=== PATIENT | male | born 1975 | race African-American/Black ===

== ENCOUNTER 2018-08-31 08:52 | Inpatient (IN) | payer BC ==
[2018-08-31 09:32] VITALS: BMI 25.5
[2018-08-31] MEDS ORDERED: MAGNESIUM HYDROX 2400MG/30ML ORAL SUSPENSION 30 ML CUP PO PRN (11:04)
[2018-08-31] MEDS ORDERED: P-EPHED 60MG/TRIPROLIDI 2.5MG TABLET PO PRN (11:04)
[2018-08-31] MEDS ORDERED: LOPERAMIDE HCL 2 MG CAPSULE PO PRN (11:04)
[2018-08-31] MEDS ORDERED: MENTHOL/PHENOL 1 EACH UD MM PRN (11:04)
[2018-08-31] MEDS ORDERED: guaiFENesin/D-METHORPHAN HB 10 ML UNIT-DOSE CUPS PO PRN (11:04)
[2018-08-31] MEDS ORDERED: MAGNESIUM CITRATE 300 ML BOTTLE PO PRN (11:04)
[2018-08-31] MEDS ORDERED: hydrOXYzine PAMOATE 50 MG CAPSULE (FP) PO PRN (11:04)
[2018-08-31] MEDS ORDERED: NICOTINE POLACRILEX 2 MG GUM BUC PRN (11:04)
[2018-08-31] MEDS ORDERED: chlordiazePOXIDE HCL 25 MG CAPSULE PO PRN (11:10)
--- NOTE | 2018-08-31 11:16 | HP ---
CIWA Score Nausea/Vomitin-No Nausea/No Vomiting Muscle Tremors: 1-None Visible, but [place] Anxiety: 4-Mod. Anxious/Guarded Agitation: 4-Moderately Restless Paroxysmal Sweats: No Perspiration Orientation: 0-Oriented Tacttile Disturbances: 2-Mild Itch/Numbness/Burn Auditory Disturbances: 2-Mild Harshness/Frighten Visual Disturbances: 2-Mild Sensitivity Headache: 1-Very Mild CIWA-Ar Total Score: 16 - Admission Criteria [facility]ASAS Guidelines: Admission for Medically Managed Detox: Requires at least one of the followin. CIWA greater than 12 2. Seizures within the past 24 hours 3. Delirium tremens within the past 24 hours 4. Hallucinations within the past 24 hours 5. Acute intervention needed for co occurring medical disorder 6. Acute intervention needed for co occurring psychiatric disorder 7. Severe withdrawal that cannot be handled at a lower level of care (continued vomiting, continued diarrhea, abnormal vital signs) requiring intravenous medication and/or fluids 8. Admission ROS [facility] - [facility] Chief Complaint: PATIENT PRESENT WITH ETOH WITHDRAWAL SX AND COCAINE DEPENDENCE. Allergies/Adverse Reactions: Allergies Allergy/AdvReac Type Severity Reaction Status Date / Time haloperidol [From Haldol] Allergy Verified 07/29/18 09:23 History of Present Illness: THIS IS FIRST ADMISSION TO [facility]. PATIENT STARTED DRINKING AT AGE 13, AMOUNT HE DRINKS VARIES. PATIENT REPORTS H/O BLACKOUTS, FALLS AND BINGE DRINKING. DENIES SEIZURES. LAST DRINK WAS EARLY THIS MORNING. PATIENT ALSO SMOKES CRACK/COCAINE, 100 DOLLARS DAILY, LAST TIME HE USED WAS LAST NIGHT. PMH INCLUDES DM, SCHIZOPHRENIA, HERNIATED DISCS AND PERIPHERAL NEUROPATHY. DENIES SI/HI. + SUICIDE ATTEMPTS 20 YEARS AGO. + MARIJUANA USE. BGM 298. PATIENT REPORTS TAKING INSULIN THIS MORNING. Exam Limitations: No Limitations - Ebola screening Have you traveled outside of the country in the last 21 days: No Have you had contact with anyone from an Ebola affected area: No Have you been sick,other than usual withdrawal symptoms: No Do you have a fever: No - Review of Systems Constitutional: Night Sweats, Changes in sleep, Unexplained wgt Loss EENT: reports: No Symptoms Reported Respiratory: reports: No Symptoms reported Cardiac: reports: No Symptoms Reported GI: reports: Diarrhea, Nausea, Poor Fluid Intake, Abdominal cramping : reports: No Symptoms Reported Musculoskeletal: reports: Back Pain, Muscle Pain Integumentary: reports: No Symptoms Reported Neuro: reports: Headache, Numbness, Tingling, Tremors Endocrine: reports: Unexplained Weight Loss Psychiatric: reports: Anxious, Depressed Patient History - Patient Medical History Hx Anemia: No Hx Asthma: No Hx Chronic Obstructive Pulmonary Disease (COPD): No Hx Cancer: No Hx Cardiac Disorders: No Hx Congestive Heart Failure: No Hx Hypertension: No Hx Hypercholesterolemia: No Hx Pacemaker: No HX Cerebrovascular Accident: No Hx Seizures: No Hx Dementia: No Hx Diabetes: Yes Hx Gastrointestinal Disorders: No Hx Liver Disease: No Hx Genitourinary Disorders: No Hx Sexually Transmitted Disorders: No Hx Renal Disease (ESRD): No Hx Thyroid Disease: No Hx Human Immunodeficiency Virus (HIV): No Hx Hepatitis C: No Hx Depression: No Hx Suicide Attempt: Yes (20 YEARS AGO OVERDOSE) Hx Schizophrenia: Yes - Patient Surgical History Past Surgical History: Yes Hx Neurologic Surgery: No Hx Cataract Extraction: No Hx Cardiac Surgery: No Hx Lung Surgery: No Hx Breast Surgery: No Hx Breast Biopsy: No Hx Abdominal Surgery: No Hx Appendectomy: No Hx Cholecystectomy: No Hx Genitourinary Surgery: No Hx Orthopedic Surgery: Yes (LEFT HIP SURGERY) Anesthesia Reaction: No - PPD History Previous Implant?: No PPD to be Administered?: Yes - Smoking Cessation Smoking history: Current every day smoker Have you smoked in the past 12 months: Yes Aproximately how many cigarettes per day: 20 Hx Chewing Tobacco Use: No Initiated information on smoking cessation: Yes 'Breaking Loose' booklet given: 08/31/18 - Substance & Tx. History Hx Alcohol Use: Yes Hx Substance Use: Yes Substance Use Type: Alcohol, Cocaine, Marijuana Hx Substance Use Treatment: No - Substances Abused Alcohol Route: Oral Frequency: 3-6 times per week Amount used: 10/09OZ BEERS/ 1/2-1 PINT GIN/ DAY Age of first use: 13 Date of Last Use: 08/31/18 Crack Route: Smoking Frequency: 1-2 times per week Amount used: $100/DAY Age of first use: 19 Date of Last Use: 08/30/18 Marijuana/Hashish Route: Smoking Frequency: Daily Amount used: 2-3 JOINTS/DAY Age of first use: 6 Date of Last Use: 08/31/18 Family Disease History - Family Disease History Family Disease History: [place]: Mother (), Other: Father () Admission Physical Exam [facility] - Vital Signs Vital Signs: Vital Signs - 24 hr 08/31/18 09:30 Temperature 96.3 F L Pulse Rate 106 H Respiratory 20 Rate Blood Pressure 128/68 - Physical General Appearance: Yes: Nourished, Appropriately Dressed, Alcohol on Breath, Tremorous, Anxious HEENTM: Yes: EOMI, Hearing grossly Normal, Normocephalic, Normal Voice, NIKOLAY, Pharynx Normal Respiratory: Yes: Chest Non-Tender, Lungs Clear, Normal Breath Sounds, No Respiratory Distress, No Accessory Muscle Use Neck: Yes: No masses,lesions,Nodules, Supple, Trachea in good position Breast: Yes: Breast Exam Deferred Cardiology: Yes: Regular Rhythm, Regular Rate, S1, S2 Abdominal: Yes: Normal Bowel Sounds, Non Tender, Soft Genitourinary: Yes: Within Normal Limits Back: Yes: Normal Inspection, Muscle Spasm Musculoskeletal: Yes: full range of Motion, Gait Steady, Back pain Extremities: Yes: Normal Inspection, Normal Range of Motion, Non-Tender, Tremors Neurological: Yes: Fully Oriented, Alert, Motor Strength 5/5, Normal Response, Numbness, Depressed Affect Integumentary: Yes: Normal Color, Dry, Warm Lymphatic: Yes: Within Normal Limits - Diagnostic (1) Alcohol dependence with uncomplicated withdrawal Current Visit: Yes Status: Acute (2) Cocaine dependence Current Visit: Yes Status: Chronic Qualifiers: Substance use status: uncomplicated Qualified Code(s): F14.20 - Cocaine dependence, uncomplicated (3) Marijuana dependence Current Visit: Yes Status: Chronic (4) Diabetes 1.5, managed as type 2 Current Visit: Yes Status: Chronic (5) Schizophrenia Current Visit: Yes Status: Chronic Qualifiers: Schizophrenia type: unspecified Qualified Code(s): F20.9 - Schizophrenia, unspecified Cleared for Admission [facility] - Detox or Rehab [facility] Level of Care: Medically Managed Detox Regimen/Protocol: Librium [facility] Breath Alcohol Content Breath Alcohol Content: 0.057 Urine Drug Screen - Results Drug Screen Negative: No Urine Drug Screen Results: THC-Marijuana, ERIK-Cocaine, BAR-Barbiturates
[2018-08-31] MEDS: IBUPROFEN 400 MG TABLET (FP) PO PRN ×2 (12:44→22:34)
[2018-08-31] MEDS: INSULIN LISPRO SQ SCH ×2 (15:25→17:01)
[2018-08-31 15:30] LABS: URINE APPEARANCE CLEAR; URINE BILIRUBIN NEGATIVE (<2.0 mg/dL); URINE COLOR LTYELLOW; URINE GLUCOSE (UA) 3+ (NEGATIVE); URINE KETONE TRACE (NEGATIVE); URINE LEUK ESTERASE NEGATIVE (NEGATIVE); URINE NITRITE NEGATIVE (NEGATIVE); URINE PROTEIN NEGATIVE (NEGATIVE); URINE UROBILINOGEN NEGATIVE mg/dL (0.2-1.0)
--- NOTE | 2018-08-31 15:52 | EKG ---
Test Reason : Blood Pressure : / mmHG Vent. Rate : 111 BPM Atrial Rate : 111 BPM P-R Int : 112 ms QRS Dur : 080 ms QT Int : 346 ms P-R-T Axes : 070 057 050 degrees QTc Int : 470 ms SINUS TACHYCARDIA WITH OCCASIONAL PREMATURE VENTRICULAR COMPLEXES OTHERWISE NORMAL ECG NO PREVIOUS ECGS AVAILABLE Confirmed by HUMBERTO NAVA, NUVIA ([id number]) on 08/31/2018 3:52:27 PM Referred By: Confirmed By:NUVIA PAUL MD
[2018-08-31] MEDS: metFORMIN HCL 500 MG TABLET (FP) PO SCH (17:30)
[2018-08-31] MEDS: chlordiazePOXIDE HCL 25 MG CAPSULE PO SCH ×2 (17:55→22:34)
[2018-08-31] MEDS ORDERED: MELATONIN 5 MG TABLETS PO PRN (22:00)
[2018-08-31] MEDS: THIAMINE HCL 100 MG TABLET (FP) PO SCH (22:34)
[2018-08-31] MEDS: INSULIN (LEVEMIR) 100 UNITS/ML UNITS SQ SCH (22:44)
[2018-09-01] MEDS: chlordiazePOXIDE HCL 25 MG CAPSULE PO SCH ×4 (05:41→22:42)
[2018-09-01] MEDS: metFORMIN HCL 500 MG TABLET (FP) PO SCH ×2 (06:06→17:27)
--- NOTE | 2018-09-01 07:40 | CONSULT ---
[facility] Psychiatric Consult - Data Date of interview: 09/01/18 Admission source: [facility] Identifying data: This is a 43 years old male, single, homeless, om SSI supporty with history of Paranoid Schizophrenia, history of psychiatric hospitalizations, reports Alcohol, Cannabis, Crack and Nicotine dependence, reports Alcohol withydrawal symptoms and seeking for detox. Substance Abuse History: Smoking history: Current every day smoker. Have you smoked in the past 12 months: Yes. Aproximately how many cigarettes per day: 20. Hx Chewing Tobacco Use: No. Initiated information on smoking cessation: Yes. 'Breaking Loose' booklet given: 08/31/18. - Substance & Tx. History. Hx Alcohol Use: Yes. Hx Substance Use: Yes. Substance Use Type: Alcohol, Cocaine , Marijuana. Hx Substance Use Treatment: No. - Substances Abused. Alcohol. Route: Oral. Frequency: 3-6 times per week. Amount used: 2/24OZ BEERS/ 1/2-1 PINT GIN/ DAY. Age of first use: 13. Date of Last Use: 08/31/18. Crack. Route: Smoking. Frequency: 1-2 times per week. Amount used: $100/ DAY. Age of first use: 19. Date of Last Use: 08/30/18. Marijuana/Hashish. Route: Smoking. Frequency: Daily. Amount used: 2-3 JOINTS/DAY. Age of first use: 6. Date of Last Use: 08/31/18 Medical History: DM-II, muscle neuropathy, Psychiatric History: Patient reports to carry Paranoid Schizophrenia, reports most recent psychiatric admission on 2018 at [facility] after suicidal attempt, patint reports trying to shoot himself.Patient reports taking prior to admission: Depakote 500mg po bid. Risperdal 2mg p[o bid. Trazodone 100mg po qhs. Denies suicidal, homicidal ideations at this time, denies perceptional disturbances as well. Physical/Sexual Abuse/Trauma History: Denies Additional Comment: Depakote 500mg po bid. Risperdal 2mg p[o bid. Trazodone 100mg po qhs Mental Status Exam - Mental Status Exam Alert and Oriented to: Person Cognitive Function: Fair Patient Appearance: Well Groomed Mood: Apprehensive Affect: Mood Congruent Patient Behavior: Cooperative Speech Pattern: Appropriate Voice Loudness: Mildly Soft/Quiet Thought Process: Circumstantial, Goal Oriented Thought Disorder: Being Controlled Hallucinations: Denies Suicidal Ideation: Denies Homicidal Ideation: Denies Insight/Judgement: Fair Sleep: Difficulty falling asleep Appetite: Weight loss Muscle strength/Tone: Normal Gait/Station: Normal Additional Comments: Depakote 500mg po bid. Risperdal 2mg p[o bid. Trazodone 100mg po qhs Psychiatric Findings - Problem List ([place] 1, 2,3) (1) Alcohol dependence with uncomplicated withdrawal Current Visit: Yes Status: Acute (2) Cocaine dependence Current Visit: Yes Status: Chronic Qualifiers: Substance use status: uncomplicated Qualified Code(s): F14.20 - Cocaine dependence, uncomplicated (3) Marijuana dependence Current Visit: Yes Status: Chronic (4) Schizophrenia Current Visit: Yes Status: Chronic Qualifiers: Schizophrenia type: unspecified Qualified Code(s): F20.9 - Schizophrenia, unspecified - Initial Treatment Plan Initial Treatment Plan: Depakote 500mg po bid. Risperdal 2mg p[o bid. Trazodone 100mg po qhs. Depakote blood level
[2018-09-01] MEDS: INSULIN LISPRO SQ SCH ×3 (08:40→17:26)
[2018-09-01] MEDS ORDERED: RISPERIDONE 2 MG PO SCH (10:00)
[2018-09-01] MEDS ORDERED: TRAZODONE HCL 100 MG PO SCH (10:00)
[2018-09-01] MEDS ORDERED: DEPAKOTE 500 MG PO SCH (10:00)
[2018-09-01 10:03] LABS: HEMATOCRIT 36.1 % (35.4-49); HEMOGLOBIN 12.5 GM/dL (11.7-16.9); MCH 33.1 pg (25.7-33.7); MCHC 34.6 g/dl (32.0-35.9); MEAN CELL VOLUME 95.7 fl (80-96); MEAN PLT VOLUME 8.1 fl (7.5-11.1); PLATELET COUNT 332 K/MM3 (134-434); RBC 3.77 M/mm3 (4.00-5.60); RDW 14.1 % (11.9-15.9); WHITE BLOOD COUNT 6.3 K/mm3 (4.0-10.0)
[2018-09-01] MEDS: PRENATAL VITAMINS W/ FOLIC ACID TABLET (FP) PO SCH (10:31)
[2018-09-01] MEDS: DIVALPROEX SODIUM 500 MG TABLET E.C. PO SCH ×2 (10:32→22:27)
[2018-09-01] MEDS: risperiDONE 2 MG TABLET PO SCH ×2 (10:32→22:27)
[2018-09-01] MEDS: NICOTINE 21 MG/24 HOURS TOPICAL PATCH TD SCH (10:33)
[2018-09-01] MEDS: IBUPROFEN 400 MG TABLET (FP) PO PRN (10:35)
[2018-09-01 10:49] LABS: ALBUMIN 2.7 g/dl (3.4-5.0); ALK PHOS 66 U/L (45-117); ANION GAP 10 MMOL/L (8-16); BILIRUBIN,TOTAL 0.4 mg/dL (0.2-1); BLOOD UREA NITROGEN 9 mg/dL (7-18); CALCIUM 8.3 mg/dL (8.5-10.1); CHLORIDE 109 mmol/L (98-107); CO2 27 mmol/L (21-32); CREATININE 0.7 mg/dL (0.55-1.3); POTASSIUM 4.2 mmol/L (3.5-5.1); SGOT/AST 15 U/L (15-37); SGPT/ALT 18 U/L (13-61); SODIUM 145 mmol/L (136-145); TOT PROT 5.4 g/dl (6.4-8.2)
[2018-09-01 10:51] LABS: GLUCOSE,RANDOM 304 mg/dL (74-106)
[2018-09-01] MEDS ORDERED: LIDOCAINE 5% TOPICAL PATCH TP ONE (11:30)
--- NOTE | 2018-09-01 11:59 | PN ---
S CIWA - CIWA Score Nausea/Vomitin-No Nausea/No Vomiting Muscle Tremors: 4-Moderate,w/Arms Extend Anxiety: 3 Agitation: 3 Paroxysmal Sweats: 3 Orientation: 0-Oriented Tacttile Disturbances: 0-None Auditory Disturbances: 0-None Visual Disturbances: 0-None Headache: 0-None Present CIWA-Ar Total Score: 13 [facility] Progress Note (SOAP) Subjective: feet pain some swelling back pain sweats irritable shakes Objective: 09/01/18 11:57 Vital Signs Temperature 98.0 F 09/01/18 09:32 Pulse Rate 105 H 09/01/18 09:32 Respiratory Rate 18 09/01/18 09:32 Blood Pressure 116/73 09/01/18 09:32 O2 Sat by Pulse Oximetry (%) Laboratory Tests 08/31/18 09/01/18 09/01/18 13:40 05:50 05:50 WBC 6.3 RBC 3.77 L Hgb 12.5 Hct 36.1 MCV 95.7 MCH 33.1 MCHC 34.6 RDW 14.1 Plt Count 332 MPV 8.1 Sodium 145 Potassium 4.2 Chloride 109 H Carbon Dioxide 27 Anion Gap 10 BUN 9 Creatinine 0.7 Creat Clearance w eGFR > 60 Random Glucose 304 H* Calcium 8.3 L Total Bilirubin 0.4 AST 15 ALT 18 Alkaline Phosphatase 66 Total Protein 5.4 L Albumin 2.7 L Urine Color Ltyellow Urine Appearance Clear Urine pH 6.0 Ur Specific [place] 1.010 Urine Protein Negative Urine Glucose (UA) 3+ H Urine Ketones Trace H Urine Blood Negative Urine Nitrite Negative Urine Bilirubin Negative Urine Urobilinogen Negative Ur Leukocyte Esterase Negative Valproic Acid 09/01/18 05:50 WBC RBC Hgb Hct MCV MCH MCHC RDW Plt Count MPV Sodium Potassium Chloride Carbon Dioxide Anion Gap BUN Creatinine Creat Clearance w eGFR Random Glucose Calcium Total Bilirubin AST ALT Alkaline Phosphatase Total Protein Albumin Urine Color Urine Appearance Urine pH Ur Specific [place] Urine Protein Urine Glucose (UA) Urine Ketones Urine Blood Urine Nitrite Urine Bilirubin Urine Urobilinogen Ur Leukocyte Esterase Valproic Acid 44.1 L aaox3 ambulating no acute distress Assessment: 09/01/18 11:57 withdrawal sx minimal ankle swelling both feet noted; encouraged to keep foot of bed elevated. Plan: continue detox elevate feet lidocaine patch Naprosyn 500mg bid tinactin cream
[2018-09-01] MEDS: TOLNAFTATE 1% CREAM 15 GM TUBE TP SCH ×2 (13:17→22:26)
[2018-09-01] MEDS: THIAMINE HCL 100 MG TABLET (FP) PO SCH (22:26)
[2018-09-01] MEDS: traZODone HCL 100 MG TABLET (FP) PO SCH (22:27)
[2018-09-01] MEDS: LIDOCAINE PATCH REMOVAL MC SCH (22:28)
[2018-09-01] MEDS: INSULIN (LEVEMIR) 100 UNITS/ML UNITS SQ SCH (22:41)
[2018-09-02] MEDS: chlordiazePOXIDE HCL 25 MG CAPSULE PO SCH ×2 (05:59→10:43)
[2018-09-02] MEDS: metFORMIN HCL 500 MG TABLET (FP) PO SCH ×2 (05:59→17:57)
[2018-09-02] MEDS: INSULIN LISPRO SQ SCH ×3 (07:46→17:56)
[2018-09-02] MEDS: risperiDONE 2 MG TABLET PO SCH ×2 (10:43→22:18)
[2018-09-02] MEDS: PRENATAL VITAMINS W/ FOLIC ACID TABLET (FP) PO SCH (10:43)
[2018-09-02] MEDS: DIVALPROEX SODIUM 500 MG TABLET E.C. PO SCH ×2 (10:43→22:18)
[2018-09-02] MEDS: ACETAMINOPHEN 325 MG TABLET (FP) PO PRN ×2 (10:43→19:17)
[2018-09-02] MEDS: TOLNAFTATE 1% CREAM 15 GM TUBE TP SCH ×2 (10:44→22:23)
[2018-09-02] MEDS: NICOTINE 21 MG/24 HOURS TOPICAL PATCH TD SCH (10:44)
[2018-09-02] MEDS ORDERED: FUROSEMIDE 20 MG TABLET (FP) PO ONE (11:10)
--- NOTE | 2018-09-02 11:34 | PN ---
[facility] CIWA - CIWA Score Nausea/Vomitin-No Nausea/No Vomiting Muscle Tremors: 3 Anxiety: 3 Agitation: 3 Paroxysmal Sweats: 3 Orientation: 0-Oriented Tacttile Disturbances: 0-None Auditory Disturbances: 0-None Visual Disturbances: 0-None Headache: 0-None Present CIWA-Ar Total Score: 12 S Progress Note (SOAP) Subjective: sweats shakes interrupted sleep b/l ankle swelling Objective: 09/02/18 11:29 Vital Signs Temperature 98.4 F 09/02/18 09:52 Pulse Rate 110 H 09/02/18 09:52 Respiratory Rate 18 09/02/18 09:52 Blood Pressure 132/76 09/02/18 09:52 O2 Sat by Pulse Oximetry (%) Laboratory Tests 08/31/18 08/31/18 09/01/18 12:00 13:40 05:50 WBC 6.3 RBC 3.77 L Hgb 12.5 Hct 36.1 MCV 95.7 MCH 33.1 MCHC 34.6 RDW 14.1 Plt Count 332 MPV 8.1 Sodium Potassium Chloride Carbon Dioxide Anion Gap BUN Creatinine Creat Clearance w eGFR Random Glucose Calcium Total Bilirubin AST ALT Alkaline Phosphatase Total Protein Albumin Urine Color Ltyellow Urine Appearance Clear Urine pH 6.0 Ur Specific [place] 1.010 Urine Protein Negative Urine Glucose (UA) 3+ H Urine Ketones Trace H Urine Blood Negative Urine Nitrite Negative Urine Bilirubin Negative Urine Urobilinogen Negative Ur Leukocyte Esterase Negative Valproic Acid HIV 1&2 Antibody Screen Negative HIV P24 Antigen Negative 09/01/18 09/01/18 09/02/18 05:50 05:50 07:00 WBC RBC Hgb Hct MCV MCH MCHC RDW Plt Count MPV Sodium 145 Potassium 4.2 Chloride 109 H Carbon Dioxide 27 Anion Gap 10 BUN 9 Creatinine 0.7 Creat Clearance w eGFR > 60 Random Glucose 304 H* Calcium 8.3 L Total Bilirubin 0.4 AST 15 ALT 18 Alkaline Phosphatase 66 Total Protein 5.4 L Albumin 2.7 L Urine Color Urine Appearance Urine pH Ur Specific [place] Urine Protein Urine Glucose (UA) Urine Ketones Urine Blood Urine Nitrite Urine Bilirubin Urine Urobilinogen Ur Leukocyte Esterase Valproic Acid 44.1 L 32.7 L HIV 1&2 Antibody Screen HIV P24 Antigen aaox3 ambulating no acute distress Assessment: 09/02/18 11:29 withdrawal sx Plan: continue detox encourage to keep feet elevated lasix 20mg x one
[2018-09-02] MEDS: LIDOCAINE 5% TOPICAL PATCH TP SCH (11:41)
--- NOTE | 2018-09-02 12:02 | PN ---
[facility] Progress Note Note: pt has been given approval from his insurance an additional day therefore pt will be d/c on Wednesday09/05/17 and has been approved to go to [place] rehab and will be picked up. All this arranged by pt counselor.
[2018-09-02] MEDS: chlordiazePOXIDE 5 MG CAPSULE PO SCH ×2 (17:58→22:19)
[2018-09-02] MEDS: MAG HYDROX/AL HYDROX/SIMETH 30 ML UNIT-DOSE CUP PO PRN (19:17)
[2018-09-02] MEDS: THIAMINE HCL 100 MG TABLET (FP) PO SCH (22:18)
[2018-09-02] MEDS: traZODone HCL 100 MG TABLET (FP) PO SCH (22:19)
[2018-09-02] MEDS: INSULIN (LEVEMIR) 100 UNITS/ML UNITS SQ SCH (22:20)
[2018-09-02] MEDS: LIDOCAINE PATCH REMOVAL MC SCH (22:21)
[2018-09-03] MEDS: chlordiazePOXIDE 5 MG CAPSULE PO SCH ×2 (05:47→10:27)
[2018-09-03] MEDS: INSULIN LISPRO SQ SCH ×3 (07:53→17:27)
[2018-09-03] MEDS: PRENATAL VITAMINS W/ FOLIC ACID TABLET (FP) PO SCH (10:25)
[2018-09-03] MEDS: TOLNAFTATE 1% CREAM 15 GM TUBE TP SCH ×2 (10:25→22:34)
[2018-09-03] MEDS: metFORMIN HCL 500 MG TABLET (FP) PO SCH ×2 (10:25→17:27)
[2018-09-03] MEDS: NICOTINE 21 MG/24 HOURS TOPICAL PATCH TD SCH (10:27)
[2018-09-03] MEDS: risperiDONE 2 MG TABLET PO SCH ×2 (10:27→22:35)
[2018-09-03] MEDS: DIVALPROEX SODIUM 500 MG TABLET E.C. PO SCH ×2 (10:27→22:35)
--- NOTE | 2018-09-03 10:35 | PN ---
S Progress Note (SOAP) Subjective: Back pain which he reports as chronic Interrupted sleep Objective: 09/03/18 10:34 Vital Signs - 8 hr 09/03/18 09/03/18 09/03/18 03:30 08:15 09:42 Temperature 98.4 F 97.2 F L Pulse Rate 92 H 102 H Respiratory 18 20 18 Rate Blood Pressure 152/83 111/70 Laboratory Last Values WBC 6.3 K/mm3 (4.0-10.0) 09/01/18 05:50 RBC 3.77 M/mm3 (4.00-5.60) L 09/01/18 05:50 Hgb 12.5 GM/dL (11.7-16.9) 09/01/18 05:50 Hct 36.1 % (35.4-49) 09/01/18 05:50 MCV 95.7 fl (80-96) 09/01/18 05:50 MCH 33.1 pg (25.7-33.7) 09/01/18 05:50 MCHC 34.6 g/dl (32.0-35.9) 09/01/18 05:50 RDW 14.1 % (11.9-15.9) 09/01/18 05:50 Plt Count 332 K/MM3 (134-434) 09/01/18 05:50 MPV 8.1 fl (7.5-11.1) 09/01/18 05:50 Sodium 145 mmol/L (136-145) 09/01/18 05:50 Potassium 4.2 mmol/L (3.5-5.1) 09/01/18 05:50 Chloride 109 mmol/L (98-107) H 09/01/18 05:50 Carbon Dioxide 27 mmol/L (21-32) 09/01/18 05:50 Anion Gap 10 MMOL/L (8-16) 09/01/18 05:50 BUN 9 mg/dL (7-18) 09/01/18 05:50 Creatinine 0.7 mg/dL (0.55-1.3) 09/01/18 05:50 Creat Clearance w eGFR > 60 (>60) 09/01/18 05:50 POC Glucometer 108 UNITS (80-120) 09/03/18 05:48 Random Glucose 304 mg/dL (74-106) H* 09/01/18 05:50 Calcium 8.3 mg/dL (8.5-10.1) L 09/01/18 05:50 Total Bilirubin 0.4 mg/dL (0.2-1) 09/01/18 05:50 AST 15 U/L (15-37) 09/01/18 05:50 ALT 18 U/L (13-61) 09/01/18 05:50 Alkaline Phosphatase 66 U/L (45-117) 09/01/18 05:50 Total Protein 5.4 g/dl (6.4-8.2) L 09/01/18 05:50 Albumin 2.7 g/dl (3.4-5.0) L 09/01/18 05:50 Urine Color Ltyellow 08/31/18 13:40 Urine Appearance Clear 08/31/18 13:40 Urine pH 6.0 (5.0-8.0) 08/31/18 13:40 Ur Specific [place] 1.010 (1.010-1.035) 08/31/18 13:40 Urine Protein Negative (NEGATIVE) 08/31/18 13:40 Urine Glucose (UA) 3+ (NEGATIVE) H 08/31/18 13:40 Urine Ketones Trace (NEGATIVE) H 08/31/18 13:40 Urine Blood Negative (NEGATIVE) 08/31/18 13:40 Urine Nitrite Negative (NEGATIVE) 08/31/18 13:40 Urine Bilirubin Negative (<2.0 mg/dL) 08/31/18 13:40 Urine Urobilinogen Negative mg/dL (0.2-1.0) 08/31/18 13:40 Ur Leukocyte Esterase Negative (NEGATIVE) 08/31/18 13:40 Valproic Acid 32.7 ug/ml (50-100) L 09/02/18 07:00 RPR Titer Nonreactive (NONREACTIVE) 09/01/18 05:50 HIV 1&2 Antibody Screen Negative 08/31/18 12:00 HIV P24 Antigen Negative 08/31/18 12:00 Labs noted, no panic values Assessment: 09/03/18 10:34 Withdrawal sx Plan: Continue detox
[2018-09-03] MEDS: LIDOCAINE 5% TOPICAL PATCH TP SCH (12:10)
[2018-09-03] MEDS: chlordiazePOXIDE HCL 10 MG CAPSULE PO SCH ×2 (17:23→22:41)
[2018-09-03] MEDS: IBUPROFEN 400 MG TABLET (FP) PO PRN (17:23)
[2018-09-03] MEDS: THIAMINE HCL 100 MG TABLET (FP) PO SCH (22:35)
[2018-09-03] MEDS: traZODone HCL 100 MG TABLET (FP) PO SCH (22:35)
[2018-09-03] MEDS: LIDOCAINE PATCH REMOVAL MC SCH (22:41)
[2018-09-03] MEDS: INSULIN (LEVEMIR) 100 UNITS/ML UNITS SQ SCH (22:41)
[2018-09-04] MEDS: chlordiazePOXIDE HCL 10 MG CAPSULE PO SCH ×2 (06:53→10:47)
[2018-09-04] MEDS: metFORMIN HCL 500 MG TABLET (FP) PO SCH ×2 (06:54→17:02)
[2018-09-04] MEDS: INSULIN LISPRO SQ SCH ×3 (07:47→17:06)
--- NOTE | 2018-09-04 09:15 | DS ---
[facility] Detox Discharge Summary Admission Date: 08/31/18 Discharge Date: 09/04/18 - History Present History: Alcohol Dependence Additional Comments: patient received 30 days metformin 1000 mg po daily on 08/25/18 - Physical Exam Results Vital Signs: Vital Signs Temperature 98.1 F 09/04/18 07:47 Pulse Rate 82 09/04/18 07:47 Respiratory Rate 18 09/04/18 07:47 Blood Pressure 131/73 09/04/18 07:47 O2 Sat by Pulse Oximetry (%) - Treatment Hospital Course: Detox Protocol Followed, Detoxed Safely, Responded well, Discharged Condition Good, Rehab Referral Accepted - Medication Discharge Medications: Ambulatory Orders Admelreginald Peralesar 15 units SQ TID 08/31/18 Chantal Cordova U-100 35 units SQ HS 08/31/18 Depakote 500 mg PO BID 08/31/18 Metformin HCl 1,000 mg PO DAILY 08/31/18 Risperidone 2 mg PO BID 08/31/18 Trazodone HCl 50 mg PO DAILY 08/31/18 Divalproex *ER* [Depakote *ER* -] 500 mg PO BID #60 tablet.sa 09/01/18 Risperidone [Risperdal] 2 mg PO BID #60 tablet 09/01/18 traZODone HCL [Trazodone HCl] 100 mg PO HS #30 tablet 09/01/18 - AMA Did Patient Leave Against Medical Advice: No
--- NOTE | 2018-09-04 09:54 | PN ---
[facility] Progress Note (SOAP) Subjective: feeling better less tremor mild sweating able to tolerated food and fluid well discuss aftercare with staff Objective: 09/04/18 10:11 Vital Signs Temperature 97.7 F 09/04/18 09:17 Pulse Rate 98 H 09/04/18 09:17 Respiratory Rate 18 09/04/18 09:17 Blood Pressure 113/68 09/04/18 09:17 O2 Sat by Pulse Oximetry (%) Laboratory Last Values WBC 6.3 K/mm3 (4.0-10.0) 09/01/18 05:50 RBC 3.77 M/mm3 (4.00-5.60) L 09/01/18 05:50 Hgb 12.5 GM/dL (11.7-16.9) 09/01/18 05:50 Hct 36.1 % (35.4-49) 09/01/18 05:50 MCV 95.7 fl (80-96) 09/01/18 05:50 MCH 33.1 pg (25.7-33.7) 09/01/18 05:50 MCHC 34.6 g/dl (32.0-35.9) 09/01/18 05:50 RDW 14.1 % (11.9-15.9) 09/01/18 05:50 Plt Count 332 K/MM3 (134-434) 09/01/18 05:50 MPV 8.1 fl (7.5-11.1) 09/01/18 05:50 Sodium 145 mmol/L (136-145) 09/01/18 05:50 Potassium 4.2 mmol/L (3.5-5.1) 09/01/18 05:50 Chloride 109 mmol/L (98-107) H 09/01/18 05:50 Carbon Dioxide 27 mmol/L (21-32) 09/01/18 05:50 Anion Gap 10 MMOL/L (8-16) 09/01/18 05:50 BUN 9 mg/dL (7-18) 09/01/18 05:50 Creatinine 0.7 mg/dL (0.55-1.3) 09/01/18 05:50 Creat Clearance w eGFR > 60 (>60) 09/01/18 05:50 POC Glucometer 115 UNITS (80-120) 09/04/18 06:54 Random Glucose 304 mg/dL (74-106) H* 09/01/18 05:50 Calcium 8.3 mg/dL (8.5-10.1) L 09/01/18 05:50 Total Bilirubin 0.4 mg/dL (0.2-1) 09/01/18 05:50 AST 15 U/L (15-37) 09/01/18 05:50 ALT 18 U/L (13-61) 09/01/18 05:50 Alkaline Phosphatase 66 U/L (45-117) 09/01/18 05:50 Total Protein 5.4 g/dl (6.4-8.2) L 09/01/18 05:50 Albumin 2.7 g/dl (3.4-5.0) L 09/01/18 05:50 Urine Color Ltyellow 08/31/18 13:40 Urine Appearance Clear 08/31/18 13:40 Urine pH 6.0 (5.0-8.0) 08/31/18 13:40 Ur Specific [place] 1.010 (1.010-1.035) 08/31/18 13:40 Urine Protein Negative (NEGATIVE) 08/31/18 13:40 Urine Glucose (UA) 3+ (NEGATIVE) H 08/31/18 13:40 Urine Ketones Trace (NEGATIVE) H 08/31/18 13:40 Urine Blood Negative (NEGATIVE) 08/31/18 13:40 Urine Nitrite Negative (NEGATIVE) 08/31/18 13:40 Urine Bilirubin Negative (<2.0 mg/dL) 08/31/18 13:40 Urine Urobilinogen Negative mg/dL (0.2-1.0) 08/31/18 13:40 Ur Leukocyte Esterase Negative (NEGATIVE) 08/31/18 13:40 Valproic Acid 32.7 ug/ml (50-100) L 09/02/18 07:00 RPR Titer Nonreactive (NONREACTIVE) 09/01/18 05:50 HIV 1&2 Antibody Screen Negative 08/31/18 12:00 HIV P24 Antigen Negative 08/31/18 12:00 lab noted 09/04/18 10:12 schizophrenia bipolar type low depakote serum level Assessment: 09/04/18 10:12 mild withdrawal sx Plan: continue detox
[2018-09-04] MEDS: TOLNAFTATE 1% CREAM 15 GM TUBE TP SCH ×2 (10:47→22:45)
[2018-09-04] MEDS: NICOTINE 21 MG/24 HOURS TOPICAL PATCH TD SCH (10:47)
[2018-09-04] MEDS: PRENATAL VITAMINS W/ FOLIC ACID TABLET (FP) PO SCH (10:47)
[2018-09-04] MEDS: DIVALPROEX SODIUM 500 MG TABLET E.C. PO SCH ×2 (10:47→22:25)
[2018-09-04] MEDS: risperiDONE 2 MG TABLET PO SCH ×2 (10:47→22:25)
[2018-09-04] MEDS: LIDOCAINE 5% TOPICAL PATCH TP SCH (10:49)
[2018-09-04] MEDS: ACETAMINOPHEN 325 MG TABLET (FP) PO PRN (17:23)
[2018-09-04] MEDS: MAG HYDROX/AL HYDROX/SIMETH 30 ML UNIT-DOSE CUP PO PRN (20:37)
[2018-09-04 21:15] VITALS: TEMP 98.4
[2018-09-04] MEDS: THIAMINE HCL 100 MG TABLET (FP) PO SCH (22:24)
[2018-09-04] MEDS: traZODone HCL 100 MG TABLET (FP) PO SCH (22:25)
[2018-09-04] MEDS: INSULIN (LEVEMIR) 100 UNITS/ML UNITS SQ SCH (22:44)
[2018-09-04] MEDS: LIDOCAINE PATCH REMOVAL MC SCH (22:45)
[2018-09-05] MEDS: MAG HYDROX/AL HYDROX/SIMETH 30 ML UNIT-DOSE CUP PO PRN (05:40)
[2018-09-05] MEDS: metFORMIN HCL 500 MG TABLET (FP) PO SCH (06:01)
[2018-09-05 07:53] VITALS: BP 136/82; PULSE 105
[2018-09-05] MEDS: INSULIN LISPRO SQ SCH (08:50)
--- NOTE | 2018-09-05 17:15 | DS ---
[facility] Detox Discharge Summary Admission Date: 08/31/18 Discharge Date: 09/05/18 - History Present History: Alcohol Dependence, Cannabis Dependence, Cocaine Dependence Additional Comments: PATIENT INITIALLY INTENT ON GOING TO [facility] ( [place], [place]) FOR AFTERCARE. HOWEVER, PATIENT LATER CHANGED HIS MIND AND ELECTED TO PREVIOUS [facility] ([place], [place]) FOR TIME BEING. PATIENT NOTES THAT HE WILL PURSUE AFTERCARE OPTION ON HIS OWN IN THE NEAR FUTURE. PATIENT ALSO ADVISED TO CONSIDER LOCAL 12-STEP / NA / AA OUTPATIENT SUPPORT GROUP MEETINGS FOR AFTERCARE. PATIENT VERBALIZED UNDERSTANDING OF RECOMMENDATION. PATIENT WAS DISCHARGED FROM DETOX UNIT IN STABLE MEDICAL CONDITION. Pertinent Past History: History of Schizophrenia, Nicotine Dependence, DM. - Physical Exam Results Vital Signs: Vital Signs Temperature 98.4 F 09/05/18 07:53 Pulse Rate 105 H 09/05/18 07:53 Respiratory Rate 20 09/05/18 07:53 Blood Pressure 136/82 09/05/18 07:53 O2 Sat by Pulse Oximetry (%) Pertinent Admission Physical Exam Findings: WITHDRAWAL SYMPTOMS. Laboratory Tests 08/31/18 08/31/18 08/31/18 12:00 13:40 16:50 WBC RBC Hgb Hct MCV MCH MCHC RDW Plt Count MPV Sodium Potassium Chloride Carbon Dioxide Anion Gap BUN Creatinine Creat Clearance w eGFR POC Glucometer 124 Random Glucose Calcium Total Bilirubin AST ALT Alkaline Phosphatase Total Protein Albumin Urine Color Ltyellow Urine Appearance Clear Urine pH 6.0 Ur Specific [place] 1.010 Urine Protein Negative Urine Glucose (UA) 3+ H Urine Ketones Trace H Urine Blood Negative Urine Nitrite Negative Urine Bilirubin Negative Urine Urobilinogen Negative Ur Leukocyte Esterase Negative Valproic Acid RPR Titer HIV 1&2 Antibody Screen Negative HIV P24 Antigen Negative 08/31/18 09/01/18 09/01/18 22:29 05:42 05:50 WBC 6.3 RBC 3.77 L Hgb 12.5 Hct 36.1 MCV 95.7 MCH 33.1 MCHC 34.6 RDW 14.1 Plt Count 332 MPV 8.1 Sodium Potassium Chloride Carbon Dioxide Anion Gap BUN Creatinine Creat Clearance w eGFR POC Glucometer 204 128 Random Glucose Calcium Total Bilirubin AST ALT Alkaline Phosphatase Total Protein Albumin Urine Color Urine Appearance Urine pH Ur Specific [place] Urine Protein Urine Glucose (UA) Urine Ketones Urine Blood Urine Nitrite Urine Bilirubin Urine Urobilinogen Ur Leukocyte Esterase Valproic Acid RPR Titer HIV 1&2 Antibody Screen HIV P24 Antigen 09/01/18 09/01/18 09/01/18 05:50 05:50 05:50 WBC RBC Hgb Hct MCV MCH MCHC RDW Plt Count MPV Sodium 145 Potassium 4.2 Chloride 109 H Carbon Dioxide 27 Anion Gap 10 BUN 9 Creatinine 0.7 Creat Clearance w eGFR > 60 POC Glucometer Random Glucose 304 H* Calcium 8.3 L Total Bilirubin 0.4 AST 15 ALT 18 Alkaline Phosphatase 66 Total Protein 5.4 L Albumin 2.7 L Urine Color Urine Appearance Urine pH Ur Specific [place] Urine Protein Urine Glucose (UA) Urine Ketones Urine Blood Urine Nitrite Urine Bilirubin Urine Urobilinogen Ur Leukocyte Esterase Valproic Acid 44.1 L RPR Titer Nonreactive HIV 1&2 Antibody Screen HIV P24 Antigen 09/01/18 09/01/18 09/01/18 11:53 16:37 22:30 WBC RBC Hgb Hct MCV MCH MCHC RDW Plt Count MPV Sodium Potassium Chloride Carbon Dioxide Anion Gap BUN Creatinine Creat Clearance w eGFR POC Glucometer 167 173 253 Random Glucose Calcium Total Bilirubin AST ALT Alkaline Phosphatase Total Protein Albumin Urine Color Urine Appearance Urine pH Ur Specific [place] Urine Protein Urine Glucose (UA) Urine Ketones Urine Blood Urine Nitrite Urine Bilirubin Urine Urobilinogen Ur Leukocyte Esterase Valproic Acid RPR Titer HIV 1&2 Antibody Screen HIV P24 Antigen 09/02/18 09/02/18 09/02/18 05:57 07:00 11:37 WBC RBC Hgb Hct MCV MCH MCHC RDW Plt Count MPV Sodium Potassium Chloride Carbon Dioxide Anion Gap BUN Creatinine Creat Clearance w eGFR POC Glucometer 257 337 Random Glucose Calcium Total Bilirubin AST ALT Alkaline Phosphatase Total Protein Albumin Urine Color Urine Appearance Urine pH Ur Specific [place] Urine Protein Urine Glucose (UA) Urine Ketones Urine Blood Urine Nitrite Urine Bilirubin Urine Urobilinogen Ur Leukocyte Esterase Valproic Acid 32.7 L RPR Titer HIV 1&2 Antibody Screen HIV P24 Antigen 09/02/18 09/03/18 09/03/18 16:29 05:48 11:38 WBC RBC Hgb Hct MCV MCH MCHC RDW Plt Count MPV Sodium Potassium Chloride Carbon Dioxide Anion Gap BUN Creatinine Creat Clearance w eGFR POC Glucometer 271 108 421 Random Glucose Calcium Total Bilirubin AST ALT Alkaline Phosphatase Total Protein Albumin Urine Color Urine Appearance Urine pH Ur Specific [place] Urine Protein Urine Glucose (UA) Urine Ketones Urine Blood Urine Nitrite Urine Bilirubin Urine Urobilinogen Ur Leukocyte Esterase Valproic Acid RPR Titer HIV 1&2 Antibody Screen HIV P24 Antigen 09/03/18 09/03/18 09/04/18 16:50 22:37 06:54 WBC RBC Hgb Hct MCV MCH MCHC RDW Plt Count MPV Sodium Potassium Chloride Carbon Dioxide Anion Gap BUN Creatinine Creat Clearance w eGFR POC Glucometer 262 351 115 Random Glucose Calcium Total Bilirubin AST ALT Alkaline Phosphatase Total Protein Albumin Urine Color Urine Appearance Urine pH Ur Specific [place] Urine Protein Urine Glucose (UA) Urine Ketones Urine Blood Urine Nitrite Urine Bilirubin Urine Urobilinogen Ur Leukocyte Esterase Valproic Acid RPR Titer HIV 1&2 Antibody Screen HIV P24 Antigen 09/04/18 09/04/18 09/04/18 11:26 16:50 22:21 WBC RBC Hgb Hct MCV MCH MCHC RDW Plt Count MPV Sodium Potassium Chloride Carbon Dioxide Anion Gap BUN Creatinine Creat Clearance w eGFR POC Glucometer 93 322 246 Random Glucose Calcium Total Bilirubin AST ALT Alkaline Phosphatase Total Protein Albumin Urine Color Urine Appearance Urine pH Ur Specific [place] Urine Protein Urine Glucose (UA) Urine Ketones Urine Blood Urine Nitrite Urine Bilirubin Urine Urobilinogen Ur Leukocyte Esterase Valproic Acid RPR Titer HIV 1&2 Antibody Screen HIV P24 Antigen 09/05/18 05:38 WBC RBC Hgb Hct MCV MCH MCHC RDW Plt Count MPV Sodium Potassium Chloride Carbon Dioxide Anion Gap BUN Creatinine Creat Clearance w eGFR POC Glucometer 306 Random Glucose Calcium Total Bilirubin AST ALT Alkaline Phosphatase Total Protein Albumin Urine Color Urine Appearance Urine pH Ur Specific [place] Urine Protein Urine Glucose (UA) Urine Ketones Urine Blood Urine Nitrite Urine Bilirubin Urine Urobilinogen Ur Leukocyte Esterase Valproic Acid RPR Titer HIV 1&2 Antibody Screen HIV P24 Antigen LABS NOTED. - Treatment Hospital Course: Detox Protocol Followed, Detoxed Safely, Responded well, Discharged Condition Good Patient has Accepted a Rehab Referral to: PT. DECLINED; ADVISED TO CONSIDER LOCAL 12-STEP/NA/AA OP SUPPORT GROUPS. - Medication Discharge Medications: Ambulatory Orders Admelog Solostar 15 units SQ TID 08/31/18 Basaglar Kwikpen U-100 35 units SQ HS 08/31/18 Depakote 500 mg PO BID 08/31/18 Metformin HCl 1,000 mg PO DAILY 08/31/18 Risperidone 2 mg PO BID 08/31/18 Trazodone HCl 50 mg PO DAILY 08/31/18 Divalproex *ER* [Depakote *ER* -] 500 mg PO BID #60 tablet.sa 09/01/18 Risperidone [Risperdal] 2 mg PO BID #60 tablet 09/01/18 traZODone HCL [Trazodone HCl] 100 mg PO HS #30 tablet 09/01/18 - Diagnosis (1) Alcohol dependence with uncomplicated withdrawal Status: Acute (2) Cocaine dependence Status: Chronic Qualifiers: Substance use status: uncomplicated Qualified Code(s): F14.20 - Cocaine dependence, uncomplicated (3) Diabetes 1.5, managed as type 2 Status: Chronic (4) Marijuana dependence Status: Chronic (5) Schizophrenia Status: Chronic Qualifiers: Schizophrenia type: unspecified Qualified Code(s): F20.9 - Schizophrenia, unspecified - AMA Did Patient Leave Against Medical Advice: No
== END 2018-09-05 09:25 | disposition home or self-care (01) | DRG 774 ==
LOC: YASAS 08:52 → Y6N 11:25
PROVIDERS: ADMIT Neuromusculoskeletal Medicine & OMM; ATTEND Neuromusculoskeletal Medicine & OMM
PROC: HZ2ZZZZ Detoxification Services for Substance Abuse Treatment (ICD-10-PCS; principal; 2018-08-31)
DX: F10.230 Alcohol dependence with withdrawal, uncomplicated (principal); F14.20 Cocaine dependence, uncomplicated; F12.20 Cannabis dependence, uncomplicated; F25.0 Schizoaffective disorder, bipolar type; E13.9 Other specified diabetes mellitus without complications; Z79.84 Long term (current) use of oral hypoglycemic drugs; Z91.5 Personal history of self-harm
CPT/HCPCS: 36415; 80053; 80164; 81003; 82962; 85027; 86593; 87389; 93005; 93010

== ENCOUNTER 2019-04-19 19:11 | Inpatient (IN) | payer BC ==
[2019-04-19 20:17] VITALS: BMI 21.4
--- NOTE | 2019-04-19 21:30 | HP ---
CIWA Score Nausea/Vomitin-Mild Nausea/No Vomiting Muscle Tremors: 3 Anxiety: 3 Agitation: 3 Paroxysmal Sweats: 1-Minimal Palms Moist Orientation: 0-Oriented Tacttile Disturbances: 0-None Auditory Disturbances: 0-None Visual Disturbances: 0-None Headache: 1-Very Mild CIWA-Ar Total Score: 12 - Admission Criteria OASAS Guidelines: Admission for Medically Managed Detox: Requires at least one of the followin. CIWA greater than 12 2. Seizures within the past 24 hours 3. Delirium tremens within the past 24 hours 4. Hallucinations within the past 24 hours 5. Acute intervention needed for co occurring medical disorder 6. Acute intervention needed for co occurring psychiatric disorder 7. Severe withdrawal that cannot be handled at a lower level of care (continued vomiting, continued diarrhea, abnormal vital signs) requiring intravenous medication and/or fluids 8. Admission ROS BHS - HPI Chief Complaint: here for alcohol detox. Using multiple substances- cocaine, K2, marijuana Allergies/Adverse Reactions: Allergies Allergy/AdvReac Type Severity Reaction Status Date / Time haloperidol [From Haldol] Allergy Verified 04/19/19 19:47 History of Present Illness: 44 yo with diabetes, herniated disc and neurotpathy, here for alcohol detox. Pt lives in longterm. Has family in the area. Does not work. On multiple medications. PCP- clinic in the [place], pt has a psychiatrist at [place] [id number]. alcohol- 1/2 pint day- no seizures/DT's MJ: $10/day K2- all day cocaine- crack- $100/day Exam Limitations: No Limitations - Ebola screening Have you traveled outside of the country in the last 21 days: Yes - Review of Systems Constitutional: No Symptoms Reported EENT: reports: No Symptoms Reported Respiratory: reports: No Symptoms reported Cardiac: reports: No Symptoms Reported GI: reports: No Symptoms Reported : reports: No Symptoms Reported Musculoskeletal: reports: No Symptoms Reported Integumentary: reports: No Symptoms Reported Neuro: reports: No Symptoms reported Endocrine: reports: No Symptoms Reported Hematology: reports: No Symptoms Reported Psychiatric: reports: No Sypmtoms Reported Other Systems: Reviewed and Negative Patient History - Patient Medical History Hx Anemia: No Hx Asthma: No Hx Chronic Obstructive Pulmonary Disease (COPD): No Hx Cancer: No Hx Cardiac Disorders: No Hx Congestive Heart Failure: No Hx Hypertension: No Hx Hypercholesterolemia: No Hx Pacemaker: No HX Cerebrovascular Accident: No Hx Seizures: No Hx Dementia: No Hx Diabetes: Yes Hx Gastrointestinal Disorders: No Hx Liver Disease: No Hx Genitourinary Disorders: No Hx Sexually Transmitted Disorders: No Hx Renal Disease (ESRD): No Hx Thyroid Disease: No Hx Human Immunodeficiency Virus (HIV): No Hx Hepatitis C: No Hx Depression: No Hx Suicide Attempt: Yes (20 YEARS AGO OVERDOSE) Hx Schizophrenia: Yes - Patient Surgical History Past Surgical History: Yes Hx Neurologic Surgery: No Hx Cataract Extraction: No Hx Cardiac Surgery: No Hx Lung Surgery: No Hx Breast Surgery: No Hx Breast Biopsy: No Hx Abdominal Surgery: No Hx Appendectomy: No Hx Cholecystectomy: No Hx Genitourinary Surgery: No Hx Section: No Hx Orthopedic Surgery: Yes (LEFT HIP SURGERY) Anesthesia Reaction: No - PPD History Date: 09/02/18 - Smoking Cessation Smoking history: Current every day smoker Have you smoked in the past 12 months: Yes Aproximately how many cigarettes per day: 20 Hx Chewing Tobacco Use: No Initiated information on smoking cessation: Yes 'Breaking Loose' booklet given: 04/19/19 - Substance & Tx. History Hx Alcohol Use: Yes Hx Substance Use: Yes Substance Use Type: Alcohol - Substances abused Crack Substance route: Smoking Frequency: Daily Amount used: 60 dollars Age of first use: 20 Date of last use: 04/19/19 Cocaine Substance route: Inhalation Frequency: Daily Amount used: 60 dollars Age of first use: 20 Date of last use: 04/19/19 Alcohol Substance route: Oral Frequency: Daily Amount used: half pint of gin/ 3 or 4 beers. Age of first use: 13 Date of last use: 04/19/19 Marijuana/Hashish Substance route: Smoking Frequency: Daily Amount used: 20 dollars Age of first use: 6 Date of last use: 04/19/19 K2/Spice Substance route: Smoking Frequency: Daily Amount used: 1 bag Age of first use: 30 Date of last use: 04/19/19 Family Disease History - Family Disease History Family Disease History: CA: Mother (), Other: Father () Admission Physical Exam BHS - Vital Signs Vital Signs: Vital Signs - 24 hr 04/19/19 04/19/19 19:47 21:16 Temperature 98.1 F 98.1 F Pulse Rate 85 85 Respiratory 16 16 Rate Blood Pressure 119/75 119/75 - Physical General Appearance: Yes: Within Normal Limits, Cachetic HEENTM: Yes: Within Normal Limits, Other Respiratory: Yes: Within Normal Limits, Chest Non-Tender, Lungs Clear Neck: Yes: Within Normal Limits Cardiology: Yes: Within Normal Limits, Regular Rhythm, Regular Rate Abdominal: Yes: Within Normal Limits, Normal Bowel Sounds Back: Yes: Within Normal Limits Musculoskeletal: Yes: Within Normal Limits Extremities: Yes: Within Normal Limits, Normal Inspection, Other (good pulses) Neurological: Yes: Within Normal Limits, Other (numbness bottom of feet) - Diagnostic (1) Alcohol dependence with uncomplicated withdrawal Current Visit: No Status: Acute (2) Cocaine dependence Current Visit: No Status: Chronic Qualifiers: Substance use status: uncomplicated Qualified Code(s): F14.20 - Cocaine dependence, uncomplicated (3) Diabetes 1.5, managed as type 2 Current Visit: No Status: Chronic (4) Marijuana dependence Current Visit: No Status: Chronic (5) Schizophrenia Current Visit: No Status: Chronic Qualifiers: Schizophrenia type: unspecified Qualified Code(s): F20.9 - Schizophrenia, unspecified Breathalyzer - Breathalyzer Breathalyzer: 0 Urine Drug Screen - Test Device Lot number: [id number] Expiration date: 01/12/21 - Control Is test valid?: Yes - Results Drug screen NEGATIVE: No Urine drug screen results: THC-Marijuana, ERIK-Cocaine Inpatient Rehab Admission - Rehab Decision to Admit Inpatient rehab admission?: No
[2019-04-19] MEDS ORDERED: ACETAMINOPHEN 325 MG TABLET (FP) PO PRN ×2 (21:36)
[2019-04-19] MEDS ORDERED: chlordiazePOXIDE HCL 10 MG CAPSULE PO PRN (21:36)
[2019-04-19] MEDS ORDERED: MAGNESIUM CITRATE 300 ML BOTTLE PO PRN (21:36)
[2019-04-19] MEDS ORDERED: METHOCARBAMOL 500 MG TABLET PO PRN (21:36)
[2019-04-19] MEDS ORDERED: BISMUTH SUBSALICYLATE 524 MG/30 ML UD PO PRN (21:36)
[2019-04-19] MEDS ORDERED: hydrOXYzine PAMOATE 25 MG CAPSULE (FP) PO PRN (21:36)
[2019-04-19] MEDS ORDERED: MAG HYDROX/AL HYDROX/SIMETH 30 ML UNIT-DOSE CUP PO PRN (21:36)
[2019-04-19] MEDS ORDERED: MENTHOL/PHENOL 1 EACH UD MM PRN (21:36)
[2019-04-19] MEDS ORDERED: MELATONIN 5 MG TABLETS PO PRN (21:36)
[2019-04-19] MEDS ORDERED: QUEtiapine FUMARATE 100 MG TABLET (FP) PO SCH (22:00)
[2019-04-19] MEDS ORDERED: traZODone HCL 100 MG TABLET (FP) PO SCH (22:00)
[2019-04-19] MEDS: chlordiazePOXIDE HCL 25 MG CAPSULE PO SCH (22:47)
[2019-04-19] MEDS: THIAMINE HCL 100 MG TABLET (FP) PO SCH (22:47)
[2019-04-19] MEDS: INSULIN SLIDING SCALE (NOVOLOG) 1 VIAL SQ SCH (22:48)
[2019-04-19] MEDS: INSULIN (LEVEMIR) 100 UNITS/ML UNITS SQ SCH (22:49)
[2019-04-20] MEDS: chlordiazePOXIDE HCL 25 MG CAPSULE PO SCH ×3 (05:28→21:27)
[2019-04-20] MEDS: INSULIN SLIDING SCALE (NOVOLOG) 1 VIAL SQ SCH ×3 (06:20→16:39)
[2019-04-20] MEDS: metFORMIN HCL 500 MG TABLET (FP) PO SCH (06:21)
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
[2019-04-20] MEDS: INSULIN (LEVEMIR) 100 UNITS/ML UNITS SQ SCH ×2 (09:40→21:28)
[2019-04-20] MEDS ORDERED: METFORMIN HCL 1000 MG PO SCH (10:00)
[2019-04-20] MEDS ORDERED: PATIENT'S OWN MEDICATION (NON-FORMULARY) (Sertraline Hcl [Sertraline Hcl] 100 MG) PO SCH (10:00)
[2019-04-20] MEDS: QUEtiapine FUMARATE 200 MG TABLET PO SCH ×2 (10:20→21:27)
[2019-04-20] MEDS: SERTRALINE HCL 50 MG TABLET (FP) PO SCH (10:20)
[2019-04-20] MEDS: PRENATAL VITAMINS W/ FOLIC ACID TABLET (FP) PO SCH (10:20)
[2019-04-20] MEDS: TOLNAFTATE 1% CREAM 15 GM TUBE TP SCH ×2 (10:21→21:26)
[2019-04-20 12:15] LABS: HEMATOCRIT 35.7 % (35.4-49); HEMOGLOBIN 11.8 GM/dL (11.7-16.9); MCHC 33.1 g/dl (32.0-35.9); MEAN CELL VOLUME 93.9 fl (80-96); MEAN PLT VOLUME 6.7 fl (7.5-11.1); PLATELET COUNT 364 K/MM3 (134-434); RDW 13.6 % (11.9-15.9); WHITE BLOOD COUNT 6.2 K/mm3 (4.0-10.0)
[2019-04-20 12:30] LABS: ALBUMIN 3.1 g/dl (3.4-5.0); BILIRUBIN,TOTAL 0.4 mg/dL (0.2-1); BLOOD UREA NITROGEN 12.7 mg/dL (7-18); CALCIUM 8.6 mg/dL (8.5-10.1); CREATININE 0.8 mg/dL (0.55-1.3); POTASSIUM 4.4 mmol/L (3.5-5.1)
--- NOTE | 2019-04-20 15:46 | PN ---
S CIWA - CIWA Score Nausea/Vomitin-Mild Nausea/No Vomiting Muscle Tremors: 3 Anxiety: 3 Agitation: 2 Paroxysmal Sweats: No Perspiration Orientation: 2-Disoriented Date<2 days Tacttile Disturbances: 0-None Auditory Disturbances: 0-None Visual Disturbances: 1-Very Mild Sensitivity Headache: 1-Very Mild CIWA-Ar Total Score: 13 BHS Progress Note (SOAP) Subjective: Tremors, Anxious, H/A, Nausea. Objective: PATIENT A & O X 2 (UNCERTAIN ABOUT CURRENT DAY / DATE). PATIENT OBSERVED AMBULATING ON UNIT UNASSISTED. IN NO ACUTE DISTRESS. 04/20/19 15:45 Vital Signs Temperature 98.4 F 04/20/19 13:44 Pulse Rate 86 04/20/19 13:44 Respiratory Rate 18 04/20/19 13:44 Blood Pressure 132/82 04/20/19 13:44 O2 Sat by Pulse Oximetry (%) Laboratory Tests 04/19/19 04/20/19 04/20/19 22:08 05:27 09:00 WBC 6.2 RBC 3.80 L Hgb 11.8 Hct 35.7 MCV 93.9 MCH 31.0 MCHC 33.1 RDW 13.6 Plt Count 364 MPV 6.7 L D Sodium Potassium Chloride Carbon Dioxide Anion Gap BUN Creatinine Est GFR (CKD-EPI)AfAm Est GFR (CKD-EPI)NonAf POC Glucometer 260 158 Random Glucose Calcium Total Bilirubin AST ALT Alkaline Phosphatase Total Protein Albumin 04/20/19 04/20/19 09:00 11:30 WBC RBC Hgb Hct MCV MCH MCHC RDW Plt Count MPV Sodium 142 Potassium 4.4 Chloride 109 H Carbon Dioxide 28 Anion Gap 5 L BUN 12.7 Creatinine 0.8 Est GFR (CKD-EPI)AfAm 125.92 Est GFR (CKD-EPI)NonAf 108.65 POC Glucometer 257 Random Glucose 142 H Calcium 8.6 Total Bilirubin 0.4 AST 24 ALT 28 Alkaline Phosphatase 70 Total Protein 6.0 L Albumin 3.1 L LABS NOTED. RESULT OF DETOX ADMISSION RPR PENDING. 04/20/19 15:45 Assessment: 04/20/19 15:45 WITHDRAWAL SYMPTOMS. Plan: CONTINUE DETOX.
[2019-04-20] MEDS: THIAMINE HCL 100 MG TABLET (FP) PO SCH (21:27)
[2019-04-21] MEDS: chlordiazePOXIDE 5 MG CAPSULE PO SCH ×3 (05:58→21:41)
[2019-04-21] MEDS: metFORMIN HCL 500 MG TABLET (FP) PO SCH (06:01)
[2019-04-21] MEDS: INSULIN SLIDING SCALE (NOVOLOG) 1 VIAL SQ SCH ×3 (08:16→16:38)
[2019-04-21] MEDS: SERTRALINE HCL 50 MG TABLET (FP) PO SCH (10:24)
[2019-04-21] MEDS: QUEtiapine FUMARATE 200 MG TABLET PO SCH ×2 (10:25→21:41)
[2019-04-21] MEDS: TOLNAFTATE 1% CREAM 15 GM TUBE TP SCH ×2 (10:25→21:47)
[2019-04-21] MEDS: PRENATAL VITAMINS W/ FOLIC ACID TABLET (FP) PO SCH (10:26)
[2019-04-21] MEDS: MAGNESIUM HYDROX 2400MG/30ML ORAL SUSPENSION 30 ML CUP PO PRN (10:26)
[2019-04-21] MEDS: INSULIN (LEVEMIR) 100 UNITS/ML UNITS SQ SCH ×2 (10:26→21:42)
--- NOTE | 2019-04-21 14:57 | PN ---
S CIWA - CIWA Score Nausea/Vomitin-No Nausea/No Vomiting Muscle Tremors: 3 Anxiety: 3 Agitation: 2 Paroxysmal Sweats: No Perspiration Orientation: 0-Oriented Tacttile Disturbances: 0-None Auditory Disturbances: 0-None Visual Disturbances: 1-Very Mild Sensitivity Headache: 0-None Present CIWA-Ar Total Score: 9 BHS Progress Note (SOAP) Subjective: Tremors, Anxious, Constipation. Objective: PATIENT A & O X 3, OBSERVED AMBULATING ON UNIT UNASSISTED. IN NO ACUTE DISTRESS. 04/21/19 14:57 Vital Signs Temperature 99.0 F 04/21/19 13:39 Pulse Rate 78 04/21/19 13:39 Respiratory Rate 18 04/21/19 13:39 Blood Pressure 136/96 04/21/19 13:39 O2 Sat by Pulse Oximetry (%) Laboratory Tests 04/19/19 04/20/19 04/20/19 22:08 05:27 09:00 WBC 6.2 RBC 3.80 L Hgb 11.8 Hct 35.7 MCV 93.9 MCH 31.0 MCHC 33.1 RDW 13.6 Plt Count 364 MPV 6.7 L D Sodium Potassium Chloride Carbon Dioxide Anion Gap BUN Creatinine Est GFR (CKD-EPI)AfAm Est GFR (CKD-EPI)NonAf POC Glucometer 260 158 Random Glucose Calcium Total Bilirubin AST ALT Alkaline Phosphatase Total Protein Albumin RPR Titer 04/20/19 04/20/19 04/20/19 09:00 09:00 11:30 WBC RBC Hgb Hct MCV MCH MCHC RDW Plt Count MPV Sodium 142 Potassium 4.4 Chloride 109 H Carbon Dioxide 28 Anion Gap 5 L BUN 12.7 Creatinine 0.8 Est GFR (CKD-EPI)AfAm 125.92 Est GFR (CKD-EPI)NonAf 108.65 POC Glucometer 257 Random Glucose 142 H Calcium 8.6 Total Bilirubin 0.4 AST 24 ALT 28 Alkaline Phosphatase 70 Total Protein 6.0 L Albumin 3.1 L RPR Titer Nonreactive 04/20/19 04/20/19 04/21/19 16:14 21:16 06:00 WBC RBC Hgb Hct MCV MCH MCHC RDW Plt Count MPV Sodium Potassium Chloride Carbon Dioxide Anion Gap BUN Creatinine Est GFR (CKD-EPI)AfAm Est GFR (CKD-EPI)NonAf POC Glucometer 69 148 121 Random Glucose Calcium Total Bilirubin AST ALT Alkaline Phosphatase Total Protein Albumin RPR Titer 04/21/19 11:17 WBC RBC Hgb Hct MCV MCH MCHC RDW Plt Count MPV Sodium Potassium Chloride Carbon Dioxide Anion Gap BUN Creatinine Est GFR (CKD-EPI)AfAm Est GFR (CKD-EPI)NonAf POC Glucometer 215 Random Glucose Calcium Total Bilirubin AST ALT Alkaline Phosphatase Total Protein Albumin RPR Titer LABS NOTED. Assessment: 04/21/19 14:58 WITHDRAWAL SYMPTOMS. Plan: CONTINUE DETOX. INCREASE DAILY PO WATER INTAKE. PRN MOM FOR CONSTIPATION. BP NOTED TO BE INTERMITTENTLY ELEVATED. PATIENT DENIES KNOWN HISTORY OF HYPERTENSION. CONTINUE TO MONITOR BLOOD PRESSURE.
[2019-04-21] MEDS: IBUPROFEN 400 MG TABLET (FP) PO PRN ×2 (16:37→21:41)
[2019-04-21] MEDS: THIAMINE HCL 100 MG TABLET (FP) PO SCH (21:41)
[2019-04-22] MEDS ORDERED: chlordiazePOXIDE HCL 10 MG CAPSULE PO PRN
[2019-04-22] MEDS: IBUPROFEN 400 MG TABLET (FP) PO PRN ×2 (06:04→19:30)
[2019-04-22] MEDS: chlordiazePOXIDE HCL 10 MG CAPSULE PO SCH ×3 (06:04→21:56)
[2019-04-22] MEDS: metFORMIN HCL 500 MG TABLET (FP) PO SCH (06:04)
[2019-04-22] MEDS: INSULIN SLIDING SCALE (NOVOLOG) 1 VIAL SQ SCH ×3 (07:53→17:15)
[2019-04-22] MEDS ORDERED: LIDOCAINE 5% TOPICAL PATCH TP ONE (10:19)
[2019-04-22] MEDS: QUEtiapine FUMARATE 200 MG TABLET PO SCH ×2 (10:29→21:56)
[2019-04-22] MEDS: PRENATAL VITAMINS W/ FOLIC ACID TABLET (FP) PO SCH (10:29)
[2019-04-22] MEDS: SERTRALINE HCL 50 MG TABLET (FP) PO SCH (10:29)
[2019-04-22] MEDS: TOLNAFTATE 1% CREAM 15 GM TUBE TP SCH ×2 (10:30→21:58)
[2019-04-22] MEDS: INSULIN (LEVEMIR) 100 UNITS/ML UNITS SQ SCH ×2 (10:30→21:50)
[2019-04-22] MEDS: MAGNESIUM HYDROX 2400MG/30ML ORAL SUSPENSION 30 ML CUP PO PRN (13:38)
--- NOTE | 2019-04-22 15:20 | PN ---
S CIWA - CIWA Score Nausea/Vomitin-No Nausea/No Vomiting Muscle Tremors: 3 Anxiety: 3 Agitation: 2 Paroxysmal Sweats: No Perspiration Orientation: 0-Oriented Tacttile Disturbances: 0-None Auditory Disturbances: 0-None Visual Disturbances: 0-None Headache: 0-None Present CIWA-Ar Total Score: 8 BHS Progress Note (SOAP) Subjective: Tremors, Body Aches, Sweating. Patient reports That Current withdrawal Detox Symptoms in General Are Subsiding in Severity. Objective: PATIENT A & O X 3, OBSERVED AMBULATING ON DETOX UNIT UNASSISTED. IN NO ACUTE DISTRESS. 04/22/19 15:20 Vital Signs Temperature 97.0 F L 04/22/19 13:33 Pulse Rate 82 04/22/19 13:33 Respiratory Rate 16 04/22/19 13:33 Blood Pressure 119/79 04/22/19 13:33 O2 Sat by Pulse Oximetry (%) Laboratory Tests 04/19/19 04/20/19 04/20/19 22:08 05:27 09:00 WBC 6.2 RBC 3.80 L Hgb 11.8 Hct 35.7 MCV 93.9 MCH 31.0 MCHC 33.1 RDW 13.6 Plt Count 364 MPV 6.7 L D Sodium Potassium Chloride Carbon Dioxide Anion Gap BUN Creatinine Est GFR (CKD-EPI)AfAm Est GFR (CKD-EPI)NonAf POC Glucometer 260 158 Random Glucose Calcium Total Bilirubin AST ALT Alkaline Phosphatase Total Protein Albumin RPR Titer 04/20/19 04/20/19 04/20/19 09:00 09:00 11:30 WBC RBC Hgb Hct MCV MCH MCHC RDW Plt Count MPV Sodium 142 Potassium 4.4 Chloride 109 H Carbon Dioxide 28 Anion Gap 5 L BUN 12.7 Creatinine 0.8 Est GFR (CKD-EPI)AfAm 125.92 Est GFR (CKD-EPI)NonAf 108.65 POC Glucometer 257 Random Glucose 142 H Calcium 8.6 Total Bilirubin 0.4 AST 24 ALT 28 Alkaline Phosphatase 70 Total Protein 6.0 L Albumin 3.1 L RPR Titer Nonreactive 04/20/19 04/20/19 04/21/19 16:14 21:16 06:00 WBC RBC Hgb Hct MCV MCH MCHC RDW Plt Count MPV Sodium Potassium Chloride Carbon Dioxide Anion Gap BUN Creatinine Est GFR (CKD-EPI)AfAm Est GFR (CKD-EPI)NonAf POC Glucometer 69 148 121 Random Glucose Calcium Total Bilirubin AST ALT Alkaline Phosphatase Total Protein Albumin RPR Titer 04/21/19 04/21/19 04/21/19 11:17 16:21 21:30 WBC RBC Hgb Hct MCV MCH MCHC RDW Plt Count MPV Sodium Potassium Chloride Carbon Dioxide Anion Gap BUN Creatinine Est GFR (CKD-EPI)AfAm Est GFR (CKD-EPI)NonAf POC Glucometer 215 182 250 Random Glucose Calcium Total Bilirubin AST ALT Alkaline Phosphatase Total Protein Albumin RPR Titer 04/22/19 04/22/19 06:06 11:42 WBC RBC Hgb Hct MCV MCH MCHC RDW Plt Count MPV Sodium Potassium Chloride Carbon Dioxide Anion Gap BUN Creatinine Est GFR (CKD-EPI)AfAm Est GFR (CKD-EPI)NonAf POC Glucometer 68 257 Random Glucose Calcium Total Bilirubin AST ALT Alkaline Phosphatase Total Protein Albumin RPR Titer LABS NOTED. Assessment: 04/22/19 15:20 WITHDRAWAL SYMPTOMS. Plan: CONTINUE DETOX. INCREASE DAILY PO WATER INTAKE. PATIENT SCHEDULED FOR D/C FROM DETOX UNIT TOMORROW.
[2019-04-22] MEDS: THIAMINE HCL 100 MG TABLET (FP) PO SCH (21:56)
[2019-04-22] MEDS ORDERED: LIDOCAINE PATCH REMOVAL MC SCH (22:00)
[2019-04-23] MEDS ORDERED: chlordiazePOXIDE HCL 10 MG CAPSULE PO ONE (05:00)
[2019-04-23] MEDS: metFORMIN HCL 500 MG TABLET (FP) PO SCH (06:09)
[2019-04-23] MEDS: INSULIN SLIDING SCALE (NOVOLOG) 1 VIAL SQ SCH (06:10)
[2019-04-23] MEDS: INSULIN (LEVEMIR) 100 UNITS/ML UNITS SQ SCH (09:23)
[2019-04-23] MEDS: QUEtiapine FUMARATE 200 MG TABLET PO SCH (09:23)
[2019-04-23] MEDS: PRENATAL VITAMINS W/ FOLIC ACID TABLET (FP) PO SCH (09:23)
[2019-04-23] MEDS: SERTRALINE HCL 50 MG TABLET (FP) PO SCH (09:23)
[2019-04-23 09:58] VITALS: BP 120/80; PULSE 96; TEMP 98.3
--- NOTE | 2019-04-23 14:43 | DS ---
[facility] Detox Discharge Summary Admission Date: 04/19/19 Discharge Date: 04/23/19 - History Present History: Alcohol Dependence Additional Comments: 44 years old male 3rd patient [facility], [place] admission was admitted on 04/19/19 for alcohol withdrawl sx management did well with librium detox regimen no complication through out the detox stay seen by psychiatrist no pharmacotherapy needed alert oriented x 3 no shortness of breath no wheezing skin warm and dry - Physical Exam Results Vital Signs: Vital Signs Temperature 98.3 F 04/23/19 09:57 Pulse Rate 96 H 04/23/19 09:57 Respiratory Rate 18 04/23/19 09:57 Blood Pressure 120/80 04/23/19 09:57 O2 Sat by Pulse Oximetry (%) Pertinent Admission Physical Exam Findings: alcohol withdrawal sx Laboratory Last Values WBC 6.2 K/mm3 (4.0-10.0) 04/20/19 09:00 RBC 3.80 M/mm3 (4.00-5.60) L 04/20/19 09:00 Hgb 11.8 GM/dL (11.7-16.9) 04/20/19 09:00 Hct 35.7 % (35.4-49) 04/20/19 09:00 MCV 93.9 fl (80-96) 04/20/19 09:00 MCH 31.0 pg (25.7-33.7) 04/20/19 09:00 MCHC 33.1 g/dl (32.0-35.9) 04/20/19 09:00 RDW 13.6 % (11.9-15.9) 04/20/19 09:00 Plt Count 364 K/MM3 (134-434) 04/20/19 09:00 MPV 6.7 fl (7.5-11.1) L D 04/20/19 09:00 Sodium 142 mmol/L (136-145) 04/20/19 09:00 Potassium 4.4 mmol/L (3.5-5.1) 04/20/19 09:00 Chloride 109 mmol/L (98-107) H 04/20/19 09:00 Carbon Dioxide 28 mmol/L (21-32) 04/20/19 09:00 Anion Gap 5 MMOL/L (8-16) L 04/20/19 09:00 BUN 12.7 mg/dL (7-18) 04/20/19 09:00 Creatinine 0.8 mg/dL (0.55-1.3) 04/20/19 09:00 Est GFR (CKD-EPI)AfAm 125.92 04/20/19 09:00 Est GFR (CKD-EPI)NonAf 108.65 04/20/19 09:00 POC Glucometer 176 UNITS (80-120) 04/23/19 06:08 Random Glucose 142 mg/dL (74-106) H 04/20/19 09:00 Calcium 8.6 mg/dL (8.5-10.1) 04/20/19 09:00 Total Bilirubin 0.4 mg/dL (0.2-1) 04/20/19 09:00 AST 24 U/L (15-37) 04/20/19 09:00 ALT 28 U/L (13-61) 04/20/19 09:00 Alkaline Phosphatase 70 U/L (45-117) 04/20/19 09:00 Total Protein 6.0 g/dl (6.4-8.2) L 04/20/19 09:00 Albumin 3.1 g/dl (3.4-5.0) L 04/20/19 09:00 RPR Titer Nonreactive (NONREACTIVE) 04/20/19 09:00 Vital Signs lab noted - Treatment Hospital Course: Detox Protocol Followed, Detoxed Safely, Responded well, Discharged Condition Good, Rehab Referral Accepted Patient has Accepted a Rehab Referral to: [facility] - Medication Discharge Medications: Ambulatory Orders Admelreginald Martel 15 units SQ TID 08/31/18 Chantal Cordova U-100 35 units SQ HS 08/31/18 Metformin HCl 1,000 mg PO DAILY 08/31/18 traZODone HCL [Trazodone HCl] 100 mg PO HS #30 tablet 09/01/18 Quetiapine Fumarate [Seroquel] 200 mg PO BID 04/19/19 Sertraline HCl 100 mg PO DAILY 04/19/19 Quetiapine Fumarate [Seroquel -] 200 mg PO BID 04/20/19 - Diagnosis (1) Diabetes mellitus, type II Status: Chronic Qualifiers: Diabetes mellitus [facility] insulin use: unspecified [facility] insulin use status Diabetes mellitus complication status: without complication Qualified Code(s): E11.9 - Type 2 diabetes mellitus without complications (2) Alcohol dependence with uncomplicated withdrawal Status: Acute - AMA Did Patient Leave Against Medical Advice: No CIWA Score - CIWA Score Nausea/Vomitin-No Nausea/No Vomiting Muscle Tremors: 1-None Visible, but [place] Anxiety: 2 Agitation: 1-Slight > Activity Paroxysmal Sweats: No Perspiration Orientation: 0-Oriented Tacttile Disturbances: 0-None Auditory Disturbances: 0-None Visual Disturbances: 0-None Headache: 0-None Present CIWA-Ar Total Score: 4
== END 2019-04-23 09:29 | disposition home or self-care (01) | DRG 774 ==
LOC: YASAS 19:11 → Y3N 21:55
PROVIDERS: ADMIT Surgery; ATTEND Surgery
PROC: HZ2ZZZZ Detoxification Services for Substance Abuse Treatment (ICD-10-PCS; principal; 2019-04-19)
DX: F10.230 Alcohol dependence with withdrawal, uncomplicated (principal); F14.20 Cocaine dependence, uncomplicated; F12.20 Cannabis dependence, uncomplicated; F17.210 Nicotine dependence, cigarettes, uncomplicated; F20.9 Schizophrenia, unspecified; E11.9 Type 2 diabetes mellitus without complications; Z79.84 Long term (current) use of oral hypoglycemic drugs; Z91.5 Personal history of self-harm
CPT/HCPCS: 36415; 80053; 82962; 85027; 86593

== ENCOUNTER 2022-03-25 15:04 | Inpatient (IN) | payer BC ==
[2022-03-25 16:41] VITALS: BMI 19.1
[2022-03-25] MEDS ORDERED: DICYCLOMINE HCL 10 MG CAPSULE PO PRN (18:03)
[2022-03-25] MEDS ORDERED: ACETAMINOPHEN 325 MG TABLET (FP) PO PRN ×2 (18:03)
[2022-03-25] MEDS ORDERED: MAG HYDROX/AL HYDROX/SIMETH 30 ML UNIT-DOSE CUP PO PRN (18:03)
[2022-03-25] MEDS ORDERED: BISMUTH SUBSALICYLATE 524 MG/30 ML PO PRN (18:03)
[2022-03-25] MEDS ORDERED: MAGNESIUM HYDROX 2400MG/30ML ORAL SUSPENSION 30 ML CUP PO PRN (18:03)
[2022-03-25] MEDS ORDERED: LOPERAMIDE HCL 2 MG CAPSULE PO PRN (18:03)
[2022-03-25] MEDS ORDERED: ONDANSETRON *ODT* 4 MG TABLET SL PRN (18:03)
[2022-03-25] MEDS ORDERED: IBUPROFEN 400 MG TABLET (FP) PO PRN (18:03)
[2022-03-25] MEDS ORDERED: MAGNESIUM CITRATE 300 ML BOTTLE PO PRN (18:03)
[2022-03-25] MEDS ORDERED: LORazepam 1 MG TABLET PO PRN (18:03)
[2022-03-25] MEDS ORDERED: NICOTINE 10 MG CARTRIDGE (INHALER) IH PRN (18:03)
[2022-03-25] MEDS ORDERED: BENZOCAINE/MENTHOL (CHLORASEPTIC ) LOZENGE MM PRN (18:03)
[2022-03-25] MEDS ORDERED: IBUPROFEN 600 MG TABLET (FP) PO ONE (18:39)
[2022-03-25] MEDS: IBUPROFEN 600 MG TABLET (FP) PO PRN (18:41)
[2022-03-25] MEDS: LIDOCAINE 5% TOPICAL PATCH TP SCH (23:28)
[2022-03-25] MEDS: INSULIN SLIDING SCALE (NOVOLOG) 1 VIAL SQ SCH (23:30)
[2022-03-25] MEDS: MELATONIN 5 MG TABLETS PO SCH (23:31)
[2022-03-25] MEDS: LIDOCAINE PATCH REMOVAL MC SCH (23:32)
[2022-03-25] MEDS: THIAMINE HCL 100 MG TABLET (FP) PO SCH (23:33)
[2022-03-25] MEDS: LORazepam 2 MG TABLET PO SCH (23:44)
[2022-03-26] MEDS: LORazepam 2 MG TABLET PO SCH ×4 (05:55→23:00)
[2022-03-26] MEDS: metFORMIN HCL 500 MG TABLET (FP) PO SCH (06:01)
[2022-03-26] MEDS: INSULIN SLIDING SCALE (NOVOLOG) 1 VIAL SQ SCH ×4 (07:44→23:00)
[2022-03-26] MEDS: PRENATAL VITAMINS W/ FOLIC ACID TABLET (FP) PO SCH (11:46)
[2022-03-26] MEDS: LIDOCAINE 5% TOPICAL PATCH TP SCH (11:52)
[2022-03-26 12:02] LABS: HEMATOCRIT 38.1 % (35.4-49); HEMOGLOBIN 12.8 GM/dL (11.7-16.9); MCH 30.7 pg (25.7-33.7); MCHC 33.6 g/dl (32.0-35.9); MEAN CELL VOLUME 91.2 fl (80-96); MEAN PLT VOLUME 6.5 fl (7.5-11.1); PLATELET COUNT 325 10^3/uL (134-434); RBC 4.17 M/mm3 (4.00-5.60); RDW 12.6 % (11.9-15.9); WHITE BLOOD COUNT 5.7 K/mm3 (4.0-10.0)
[2022-03-26 12:26] LABS: ALBUMIN 3.4 g/dl (3.4-5.0); BILIRUBIN,TOTAL 0.4 mg/dL (0.2-1); BLOOD UREA NITROGEN 16.9 mg/dL (7-18); CREATININE 0.8 mg/dL (0.55-1.3)
[2022-03-26 12:28] LABS: CALCIUM 9.1 mg/dL (8.5-10.1); TOT PROT 6.9 g/dl (6.4-8.2)
[2022-03-26] MEDS: LIDOCAINE PATCH REMOVAL MC SCH (23:00)
[2022-03-26] MEDS: QUEtiapine FUMARATE 50 MG TABLET PO SCH (23:00)
[2022-03-26] MEDS: MELATONIN 5 MG TABLETS PO SCH (23:00)
[2022-03-26] MEDS: INSULIN (LEVEMIR) 100 UNITS/ML UNITS SQ SCH (23:00)
[2022-03-26] MEDS: THIAMINE HCL 100 MG TABLET (FP) PO SCH (23:00)
[2022-03-27] MEDS: LORazepam 1 MG TABLET PO SCH ×4 (06:25→22:28)
[2022-03-27] MEDS: metFORMIN HCL 500 MG TABLET (FP) PO SCH (06:25)
[2022-03-27] MEDS: INSULIN SLIDING SCALE (NOVOLOG) 1 VIAL SQ SCH ×4 (07:55→21:45)
[2022-03-27] MEDS: PRENATAL VITAMINS W/ FOLIC ACID TABLET (FP) PO SCH (11:12)
[2022-03-27] MEDS: LIDOCAINE 5% TOPICAL PATCH TP SCH (11:12)
[2022-03-27] MEDS: LIDOCAINE PATCH REMOVAL MC SCH (21:44)
[2022-03-27] MEDS: INSULIN (LEVEMIR) 100 UNITS/ML UNITS SQ SCH (21:44)
[2022-03-27] MEDS: QUEtiapine FUMARATE 50 MG TABLET PO SCH (21:45)
[2022-03-27] MEDS: THIAMINE HCL 100 MG TABLET (FP) PO SCH (21:45)
[2022-03-27] MEDS: MELATONIN 5 MG TABLETS PO SCH (21:45)
[2022-03-28] MEDS ORDERED: LORazepam 0.5 MG TABLET PO PRN
[2022-03-28] MEDS: LORazepam 0.5 MG TABLET PO SCH ×4 (06:38→22:00)
[2022-03-28] MEDS: metFORMIN HCL 500 MG TABLET (FP) PO SCH (06:38)
[2022-03-28] MEDS: INSULIN SLIDING SCALE (NOVOLOG) 1 VIAL SQ SCH ×4 (07:23→23:10)
[2022-03-28] MEDS: LIDOCAINE 5% TOPICAL PATCH TP SCH (11:38)
[2022-03-28] MEDS: IBUPROFEN 600 MG TABLET (FP) PO PRN (11:39)
[2022-03-28] MEDS: PRENATAL VITAMINS W/ FOLIC ACID TABLET (FP) PO SCH (11:40)
[2022-03-28] MEDS: LIDOCAINE PATCH REMOVAL MC SCH (21:47)
[2022-03-28] MEDS: MELATONIN 5 MG TABLETS PO SCH (21:47)
[2022-03-28] MEDS: QUEtiapine FUMARATE 50 MG TABLET PO SCH (21:47)
[2022-03-28] MEDS: THIAMINE HCL 100 MG TABLET (FP) PO SCH (21:47)
[2022-03-28] MEDS: INSULIN (LEVEMIR) 100 UNITS/ML UNITS SQ SCH (23:09)
[2022-03-29] MEDS ORDERED: LORazepam 0.5 MG TABLET PO ONE (05:00)
[2022-03-29] MEDS: metFORMIN HCL 500 MG TABLET (FP) PO SCH (07:17)
[2022-03-29] MEDS: IBUPROFEN 600 MG TABLET (FP) PO PRN (07:19)
[2022-03-29] MEDS: METHOCARBAMOL 500 MG TABLET PO PRN ×2 (07:19→17:20)
[2022-03-29] MEDS: INSULIN SLIDING SCALE (NOVOLOG) 1 VIAL SQ SCH ×4 (07:39→22:29)
[2022-03-29] MEDS: PRENATAL VITAMINS W/ FOLIC ACID TABLET (FP) PO SCH (10:37)
[2022-03-29 12:53] VITALS: RESP 18
[2022-03-29] MEDS: LIDOCAINE 5% TOPICAL PATCH TP SCH (15:48)
[2022-03-29] MEDS: THIAMINE HCL 100 MG TABLET (FP) PO SCH (22:28)
[2022-03-29] MEDS: LIDOCAINE PATCH REMOVAL MC SCH (22:29)
[2022-03-29] MEDS: QUEtiapine FUMARATE 50 MG TABLET PO SCH (22:29)
[2022-03-29] MEDS: MELATONIN 5 MG TABLETS PO SCH (22:29)
[2022-03-29] MEDS: INSULIN (LEVEMIR) 100 UNITS/ML UNITS SQ SCH (22:29)
[2022-03-30] MEDS: metFORMIN HCL 500 MG TABLET (FP) PO SCH (06:40)
[2022-03-30] MEDS: INSULIN SLIDING SCALE (NOVOLOG) 1 VIAL SQ SCH ×2 (06:48→11:34)
[2022-03-30] MEDS: PRENATAL VITAMINS W/ FOLIC ACID TABLET (FP) PO SCH (10:58)
[2022-03-30] MEDS: LIDOCAINE 5% TOPICAL PATCH TP SCH ×2 (10:58→11:00)
[2022-03-30 13:04] VITALS: BP 128/89; PULSE 111; TEMP 97.2
== END 2022-03-30 14:39 | disposition home or self-care (01) | DRG 775 ==
LOC: YASAS 15:04 → Y3N 18:09
PROVIDERS: ADMIT Allergy & Immunology; ATTEND Surgery
PROC: HZ2ZZZZ Detoxification Services for Substance Abuse Treatment (ICD-10-PCS; principal; 2022-03-25)
DX: F10.230 Alcohol dependence with withdrawal, uncomplicated (principal); F12.20 Cannabis dependence, uncomplicated; F17.210 Nicotine dependence, cigarettes, uncomplicated; F19.282 Other psychoactive substance dependence with psychoactive substance-induced sleep disorder; F19.24 Other psychoactive substance dependence with psychoactive substance-induced mood disorder; E11.42 Type 2 diabetes mellitus with diabetic polyneuropathy; E11.621 Type 2 diabetes mellitus with foot ulcer; Z79.4 Long term (current) use of insulin; M54.50 Low back pain, unspecified; G89.29 Other chronic pain; Z20.822 Contact with and (suspected) exposure to COVID-19; Z62.810 Personal history of physical and sexual abuse in childhood; R63.4 Abnormal weight loss; Z68.1 Body mass index [BMI] 19.9 or less, adult; Z99.89 Dependence on other enabling machines and devices; Z88.8 Allergy status to other drugs, medicaments and biological substances; Z59.02 Unsheltered homelessness
CPT/HCPCS: 36415; 80053; 82962; 85027; 86780; 87811; 93005; 93010; C9803-CS; U0003; U0005